=== PATIENT | male | born 2000 | race Caucasian/White ===

== ENCOUNTER 2021-03-11 01:24 | Emergency (ER) | payer OTHER, SELFPAY ==
[2021-03-11 01:33] VITALS: BP 149/95; PULSE 81; RESP 16; TEMP 36.9; O2SAT 97; BMI 23.0
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
[2021-03-11 02:42] VITALS: BP 141/88; PULSE 88; RESP 20; O2SAT 98
== END 2021-03-11 03:00 | disposition home or self-care (01) ==
PROVIDERS: Emergency Provider Emergency Medicine
DX: S64.21XA Injury of radial nerve at wrist and hand level of right arm, initial encounter (principal); F17.210 Nicotine dependence, cigarettes, uncomplicated; Y04.2XXA Assault by strike against or bumped into by another person, initial encounter
CPT/HCPCS: 73110; 73130; 99283; 99284